=== PATIENT | male | born 2000 | race Caucasian/White ===

== ENCOUNTER → 2022-03-09 11:41 | Outpatient (CLI) | payer OTHER, SELFPAY ==
--- NOTE | ~2022-03-09 | XR_ITS ---
XR abdomen/kub 1V 03/09/2022 12:09 INDICATION: Left ureteral stone TECHNIQUE: KUB COMPARISON: 05/14/2018 FINDINGS: Bowel gas pattern is normal. There is no evidence of free air, mass, organomegaly, ascites or obstruction. No abnormal calculi are seen. The bones appear intact. IMPRESSION: 1: No acute abdominal abnormality identified. Reviewed, dictated and finalized at location A.
== END ==
PROVIDERS: PCP Internal Medicine; Visit Provider Nurse Practitioner Family
DX: N20.1 Calculus of ureter (principal)
CPT/HCPCS: 74018